=== PATIENT | female | born 1995 | race Asian ===

== ENCOUNTER 2021-10-20 00:39 | Emergency (ER) | payer OTHER ==
[2021-10-20 01:18] LABS: #Basophils 0.1 10x3/uL (0.0-0.2); #Eosinphils 0.8 10x3/uL (0.0-0.5); #Monocytes 0.6 10x3/uL (0.0-1.1); #Neutrophils 6.5 10x3/uL (1.5-8.4); %Basophils 0.9 % (0.0-2.0); %Eosinophils 8.4 % (0.0-6.0); %Lymphocytes 17.6 % (18.0-47.0); %Monocytes 5.8 % (0.0-10.0); %Neutrophils 67.1 % (40.0-75.0); Hemoglobin 13.8 g/dL (12.0-15.5); Mean Corpuscular HGB CONC 36.2 g/dL (32.0-36.0); Mean Corpuscular Hemoglobin 30.5 pg (27.0-33.0); Mean Corpuscular Volume 84.1 fl (81.6-98.3); Mean Platelet Volume 9.8 fl (7.4-10.4); Platelet Count 388 10x3/uL (150-450); RBC Distribution Width 12.4 % (11.5-14.5); Red Blood Cell (RBC) Count 4.53 10x6/uL (3.90-5.03); White Blood Cell (WBC) Count 9.6 10x3/uL (3.5-10.5)
[2021-10-20] MEDS ORDERED: Metoclopramide HCl 10 MG/2 ML VIAL ONE (01:20)
[2021-10-20] MEDS ORDERED: Ketorolac Tromethamine 30 MG/ML VIAL ONE (01:21)
[2021-10-20] MEDS ORDERED: diphenhydrAMINE 50 MG/ML VIAL ONE (01:21)
[2021-10-20 01:42] LABS: BHCG - Serum Negative (NEGATIVE); Pregs Control Background? CLEAR/WHITE (CLR/WHITE); Pregs Control Bar Appear? YES (CONTROL BAR)
[2021-10-20 01:44] LABS: ALT (SGPT) 26 U/L (8-55); AST (SGOT) 17 U/L (5-34); Albumin 4.1 g/dL (3.5-5.0); Alkaline Phosphatase 53 U/L (40-110); Anion Gap 13 mmol/L (10-20); BUN (Urea Nitrogen) 11 mg/dL (7.0-18.7); Bilirubin, Total 0.9 mg/dL (0.2-1.2); Calc. Creatinine Clearance 0 mL/min (70-130); Calcium 8.8 mg/dL (7.8-10.44); Carbon Dioxide 22 mmol/L (22-29); Chloride 108 mmol/L (98-107); Globulin 2.9 g/dL (2.4-3.5); Glucose 104 mg/dL (70-105); Potassium 3.8 mmol/L (3.5-5.1); Sodium 139 mmol/L (136-145)
== END 2021-10-20 02:42 | disposition home or self-care (01) ==
LOC: CSHERS 00:39
DX: R51.9 Headache, unspecified (principal)
CPT/HCPCS: 80053; 84703; 85025; 96374; 96375; J1200; J1885; J2765